=== PATIENT | female | born 1965 | race Caucasian/White ===

== ENCOUNTER → 2019-06-24 17:36 | Outpatient (CLI) | payer BC, SELFPAY ==
--- NOTE | ~2019-06-24 | MR_ITS ---
EXAMINATION: MR lumbar spine wo con DATE: 06/24/2019 19:00 INDICATION: Low back pain. TECHNIQUE: Magnetic resonance imaging (MRI) of the lumbar spine was performed without intravenous con trast. Sequences included sagittal T2-weighted FSE, sagittal T2-weighted FS FSE, sagittal T1-weighted FSE, and axial T2-weighted FSE. COMPARISON: None FINDINGS: Bone alignment is normal. Vertebral body heights and intervertebral disc heights are normal . There are hemangiomas in L1 and L5 vertebral bodies. The distal spinal cord signal intensity is nor mal. The conus medullaris is at L1-L2. The following disc levels are specifically discussed: L1-L2: The disc does not extend beyond the endplate margin. There is no facet joint osteoarthritis. T here is no neural foraminal stenosis. There is no central canal stenosis. L2-L3: The disc does not extend beyond the endplate margin. There is mild bilateral facet joint osteo arthritis. There is no neural foraminal stenosis. There is no central canal stenosis. L3-L4: The disc is bulging. There is moderate bilateral facet joint osteoarthritis. There is mild aubree ateral neural foraminal stenosis. There is mild central canal stenosis. L4-L5: The disc is bulging. There is severe bilateral facet joint osteoarthritis. There is mild bilat eral neural foraminal stenosis. There is mild central canal stenosis. L5-S1: The disc is bulging. There is mild right and severe left facet joint osteoarthritis. There is no neural foraminal stenosis. There is no central canal stenosis. IMPRESSION: 1. Mild lumbar spondylosis. Reviewed, dictated and finalized at location A. ENSATION ADMINISTRATOR IMPRESSION: 1. Mild lumbar spondylosis.
== END ==
PROVIDERS: Visit Provider Orthopaedic Surgery
DX: M47.896 Other spondylosis, lumbar region (principal)
CPT/HCPCS: 72148

== ENCOUNTER → 2019-08-27 17:08 | Outpatient (CLI) | payer BC, SELFPAY ==
--- NOTE | ~2019-08-27 | MM_ITS ---
EXAMINATION: MM screening [facility] BI w kalyan HISTORY: Screening mammogram TECHNIQUE: Craniocaudal and mediolateral oblique 3-D tomosynthesis images were obtained and synthetic 2-D images were generated. CAD analysis was submitted and interpreted. COMPARISON: 07/18/2018, 06/30/2018, 05/27/2017 BREAST PARENCHYMAL COMPOSITION: There are scattered areas of fibroglandular density. FINDINGS: RIGHT BREAST: A mass is present in the middle third of the lower breast which is best appreciated 6.5 cm from the nipple on mediolateral oblique tomosynthesis image 44/77. LEFT BREAST: There is no evidence of suspicious mass, calcification, or architectural distortion to s uggest malignancy. There has been no significant interval change. IMPRESSION: 1. Right breast mass. 2. Additional mammographic views and possible breast ultrasound are recommended. BI-RADS Category 0: Incomplete: Needs additional imaging evaluation. Reviewed, dictated and finalized at location A. ARY HISTORIAN IMPRESSION: 1. Right breast mass. 2. Additional mammographic views and possible breast ultrasound are recommended . BI-RADS Category 0: Incomplete: Needs additional imaging evaluation.
== END ==
PROVIDERS: Visit Provider Obstetrics & Gynecology
DX: Z12.31 Encounter for screening mammogram for malignant neoplasm of breast (principal); R92.8 Other abnormal and inconclusive findings on diagnostic imaging of breast
CPT/HCPCS: 77063; 77067

== ENCOUNTER → 2019-09-15 07:38 | Outpatient (CLI) | payer BC, SELFPAY ==
--- NOTE | ~2019-09-15 | MMUS_ITS ---
EXAMINATION: MM diagnostic mammo unilat RT, US breast RT limited HISTORY: Follow-up right breast asymmetries TECHNIQUE: Additional 3-D tomosynthesis images of the right breast were performed and synthetic 2-D i mages were generated. CAD analysis was submitted and interpreted. High resolution right breast ultras ound was performed. COMPARISON: Comparison to multiple prior studies sequentially, with oldest reviewed study dated 04/20. FINDINGS: MAMMOGRAPHIC FINDINGS: Breast composed of scattered areas of fibroglandular density. There is an 8 mm circumscribed mass in the lower inner quadrant of the right breast, middle third. No suspicious architectural distortion or abnormal cluster of calcifications. ULTRASOUND: At 9:00, 4 cm from the nipple, there is an irregular shaped hypoechoic mass measuring 6 x 5 x 4 mm wi th posterior shadowing. No internal vascularity. There are multiple cysts of the right breast includi ng a cluster of microcysts at 9:00, 4 cm from the nipple measuring 1.2 cm in aggregate. IMPRESSION: 1. Irregular shaped solid hypoechoic mass of the right breast at 9:00, 4 cm from the nipple. 2. Ultrasound-guided right breast biopsy recommended. BI-RADS category 4, suspicious findings. Reviewed, dictated and finalized at location A. RPRISE SALES PERSON IMPRESSION: 1. Irregular shaped solid hypoechoic mass of the right breast at 9:00, 4 cm fro m the nipple. 2. Ultrasound-guided right breast biopsy recommended. BI-RADS category 4, suspicious findings.
== END ==
PROVIDERS: Visit Provider Obstetrics & Gynecology
DX: R92.8 Other abnormal and inconclusive findings on diagnostic imaging of breast (principal)
CPT/HCPCS: 76642; 77065

== ENCOUNTER → 2020-03-04 14:54 | Outpatient (CLI) | payer BC, SELFPAY ==
--- NOTE | ~2020-03-04 | XR_ITS ---
XR_[id number]_CR DATE: 03/04/2020 15:04 INDICATION: Neck pain TECHNIQUE: AP, lateral and swimmer views COMPARISON: None FINDINGS: There is moderately severe degenerative disc disease at C5-6 and C6-7 with mild retrolisthe sis. There is uncovertebral joint spurring at C5-6 and C6-7. No fracture or dislocation or locked facet or prevertebral soft tissue swelling. IMPRESSION: Degenerative changes, including moderately severe degenerative disc disease at C5-6 and C 6-7 Reviewed, dictated and finalized at Location A. Reviewed, dictated and finalized at location A. IMPRESSION: Degenerative changes, including moderately severe degenerative disc disease at C5-6 and C6-7
== END ==
PROVIDERS: PCP Family Medicine; Visit Provider Family Medicine
DX: M54.2 Cervicalgia (principal); R20.2 Paresthesia of skin; M50.322 Other cervical disc degeneration at C5-C6 level
CPT/HCPCS: 72040

== ENCOUNTER → 2020-12-08 16:11 | Outpatient (CLI) | payer BC, SELFPAY ==
--- NOTE | ~2020-12-08 | MM_ITS ---
EXAMINATION: MM screening [facility] BI w kalyan HISTORY: Screening TECHNIQUE: Craniocaudal and mediolateral oblique 3-D tomosynthesis images were obtained and synthetic 2-D images were generated. CAD analysis was submitted and interpreted. COMPARISON: Comparison to multiple prior studies sequentially, with oldest reviewed study dated 04/21. BREAST PARENCHYMAL COMPOSITION: The breasts are heterogeneously dense, which may obscure small masses . FINDINGS: There is a mass in the lower inner quadrant of the right breast measuring approximately 1 c m. The left breast is stable without evidence for malignancy. IMPRESSION: 1. Right breast mass, lower inner quadrant measuring approximately 1 cm. 2. Additional mammographic views and possible breast ultrasound are recommended. BI-RADS Category 0: Incomplete: Needs additional imaging evaluation. Reviewed, dictated and finalized at location A. IMPRESSION: 1. Right breast mass, lower inner quadrant measuring approximately 1 cm. 2. Additional mammographic views and possible breast ultrasound are recommended . BI-RADS Category 0: Incomplete: Needs additional imaging evaluation.
== END ==
PROVIDERS: Visit Provider Obstetrics & Gynecology
DX: Z12.31 Encounter for screening mammogram for malignant neoplasm of breast (principal); R92.8 Other abnormal and inconclusive findings on diagnostic imaging of breast
CPT/HCPCS: 77063; 77067

== ENCOUNTER → 2021-01-05 07:40 | Outpatient (CLI) | payer BC, SELFPAY ==
--- NOTE | ~2021-01-05 | MMUS_ITS ---
EXAMINATION: MM diagnostic mammo unilat RT, US breast RT limited HISTORY: ] Breast mass on screening mammogram TECHNIQUE: Additional 3-D tomosynthesis images of the right breast were performed and synthetic 2-D i mages were generated. CAD analysis was submitted and interpreted. High resolution limited right breas t ultrasound was performed. COMPARISON: 12/08/2020, 09/15/2019, 08/27/2019, 06/30/2018 FINDINGS: MAMMOGRAPHIC FINDINGS: There is a 9 mm oval, obscured, equal density mass in the anterior third of the lower inner breast at the 4:00 location 3 cm from the nipple. No suspicious calcification or architectural distortion are identified. ULTRASOUND: There is a 10 mm cyst at the 4:00 location 4 cm from the nipple corresponding to the mammographic fin ding in question. An adjacent 4 mm cyst is also noted. Cysts measuring 4 mm and 3 mm are noted at the 6:00 location 4 cm from the nipple. IMPRESSION: 1. No mammographic or sonographic evidence of malignancy. 2. Recommend routine screening mammography in one year. BI-RADS Category 2: Benign finding(s). Reviewed, dictated and finalized at location A. IMPRESSION: 1. No mammographic or sonographic evidence of malignancy. 2. Recommend routine screening mammography in one year. BI-RADS Category 2: Benign finding(s).
== END ==
PROVIDERS: Visit Provider Obstetrics & Gynecology
DX: R92.8 Other abnormal and inconclusive findings on diagnostic imaging of breast (principal)
CPT/HCPCS: 76642; 77065

== ENCOUNTER 2022-05-10 10:39 | Outpatient (CLI) | payer OTHER, SELFPAY ==
--- NOTE | ~2022-05-10 | MM_ITS ---
EXAMINATION: MM screening [facility] BI w kalyan HISTORY: Screening TECHNIQUE: Craniocaudal and mediolateral oblique 3-D tomosynthesis images were obtained and synthetic 2-D images were generated. CAD analysis was submitted and interpreted. COMPARISON: Comparison to multiple prior studies sequentially, with oldest reviewed study dated 06/21. BREAST PARENCHYMAL COMPOSITION: Breast composed of scattered areas of fibroglandular density FINDINGS: There are bilateral nodular asymmetries in the periareolar location of both breasts. These areas are demonstrated on MLO views, although not confirmed on CC views. IMPRESSION: 1. Bilateral nodular asymmetries in the periareolar location of both breasts. 2. Additional mammographic views and possible breast ultrasound are recommended. BI-RADS CATEGORY 0 - INCOMPLETE STUDY, NEED ADDITIONAL IMAGING EVALUATION. Reviewed, dictated and finalized at location A. IMPRESSION: 1. Bilateral nodular asymmetries in the periareolar location of both breasts. 2. Additional mammographic views and possible breast ultrasound are recommended . BI-RADS CATEGORY 0 - INCOMPLETE STUDY, NEED ADDITIONAL IMAGING EVALUATION.
== END 2022-05-10 10:40 | disposition home or self-care (01) ==
PROVIDERS: PCP Family Medicine; Visit Provider Nurse Practitioner
DX: Z12.31 Encounter for screening mammogram for malignant neoplasm of breast (principal); R92.8 Other abnormal and inconclusive findings on diagnostic imaging of breast
CPT/HCPCS: 77063; 77067

== ENCOUNTER 2022-05-28 14:10 | Outpatient (CLI) | payer OTHER, SELFPAY ==
--- NOTE | ~2022-05-28 | MMUS_ITS ---
EXAMINATION: MM diagnostic [facility] BI w dustin, US breast BI complete HISTORY: Bilateral nodular asymmetries reported in the periareolar areas of the breasts on 05/10/2022 screening mammogram TECHNIQUE: Additional 3-D tomosynthesis images of both breasts were performed and synthetic 2-D image s were generated. CAD analysis was submitted and interpreted. High resolution complete bilateral roseline st ultrasound including all 4 quadrants and subareolar areas was performed. COMPARISON: 05/12/2021 bilateral screening mammogram 01/05/2021 diagnostic right mammogram and limited right breast ultrasound 12/08/2020 bilateral screening mammogram FINDINGS: MAMMOGRAPHIC FINDINGS: Approximately 3.2 x 5 mm asymmetric density is noted in the anterior upper mid right breast (MLO Dustin synthesis image 35/60). Small mass cannot be excluded in either breast. Bilateral biopsy markers are noted; history of prior bilateral benign breast biopsies. ULTRASOUND: No suspicious mass or shadowing of either breast is evident. Right breast: 4:00 4 cm from nipple: 4.3 x 5.9 x 6.9 mm sonolucency without posterior shadowing or suspicious centr al vascularity, consistent with small cyst 4:00 4 cm from nipple: 2.2 mm hypoechoic area without shadowing, likely a small cyst 6:00 4 cm from nipple: Septated 2.9 x 5.8 mm cyst without internal vascularity. Left breast: 4:00 4 cm from nipple: Parallel oval hypoechoic circumscribed 3.6 x 4.7 mm lesion without internal va scularity or posterior shadowing, likely benign 4:00 4 cm from nipple: 3.6 x 4.8 x 5 mm septated cyst without internal vascularity or posterior shado wing 6:00 5 cm from nipple: Parallel circumscribed 3.7 x 5.7 x 7 mm lesion without internal vascularity or posterior shadowing, most consistent with benign process IMPRESSION: 1. Benign findings 2. Routine annual mammographic screening is recommended BI-RADS Category 2: Benign finding(s). Reviewed, dictated and finalized at location A. ON BASTER IMPRESSION: 1. Benign findings 2. Routine annual mammographic screening is recommended BI-RADS Category 2: Benign finding(s).
== END 2022-05-28 14:11 ==
LOC: MICIMG 14:11
PROVIDERS: PCP Family Medicine; Visit Provider Nurse Practitioner
DX: R92.8 Other abnormal and inconclusive findings on diagnostic imaging of breast (principal)
CPT/HCPCS: 76641; 77062; 77066; G0279

== ENCOUNTER 2023-11-19 10:08 | Outpatient (CLI) | payer OTHER, SELFPAY ==
--- NOTE | ~2023-11-19 | MM_ITS ---
EXAMINATION: MM screening [facility] BI w kalyan HISTORY: Screening mammogram TECHNIQUE: Craniocaudal and mediolateral oblique 3-D tomosynthesis images were obtained and synthetic 2-D images were generated. CAD analysis was submitted and interpreted. COMPARISON: 05/28/2022 diagnostic bilateral mammogram and complete bilateral breast ultrasound examina tion 05/10/2022 bilateral screening mammogram 01/05/2021 diagnostic right mammogram and Limited right breast ultrasound 12/08/2020 bilateral screening mammogram BREAST PARENCHYMAL COMPOSITION: There are scattered areas of fibroglandular density. FINDINGS: There are bilateral breast biopsy markers; history of prior benign bilateral breast biopsie s. There is no evidence of suspicious mass, calcification, or architectural distortion to suggest mal ignancy in either breast. There has been no suspicious interval change. IMPRESSION: 1. No mammographic evidence of malignancy. 2. Recommend routine screening mammography in one year. BI-RADS Category 1: Negative Reviewed, dictated and finalized at location A.
--- NOTE | ~2023-11-19 | DEXA_ITS ---
Bone Density Report Name: GONZALO ALICIA Age: 58 Sex: Female Ethnicity: White Date of : 1965 Indication: postmenopausal; screening for osteoporosis; parental hip fracture; height loss; Referring Provider: ELIAS, SAFIA Study: Bone densitometry was performed. Exam Date: November 19, 2023 Accession number: [id number] Bone Density: Region BMD T-score Z-score Classification AP Spine (L1-L4) 0.989 -0.5 0.8 Normal Femoral Neck (Left) 0.742 -1.0 0.3 Normal Total Hip (Left) 0.865 -0.6 0.3 Normal Femoral Neck (Right) 0.716 -1.2 0.1 Osteopenia Total Hip (Right) 0.807 -1.1 -0.2 Osteopenia Total Hip Mean 0.836 -0.9 0.1 Normal World Health Organization criteria for BMD impression classify patients as: Normal (T-score at or above -1.0), Osteopenia (T-score between -1.0 and -2.5), or Osteoporosis (T-score at or below -2.5). 10-year Fracture Risk(1): Major Osteoporotic Fracture 14% Hip Fracture 0.5% Reported Risk Factors: [place] (), Neck BMD=0.716, BMI=27.9, parental fracture (1) FRAX(R) Version 3.08. Fracture probability calculated for an untreated patient. Fracture probability may be lower if the patient has received treatment. Clinical Information Provided by Patient: Parent has had a hip fracture Has used the following medications: Vitamin D, Calcium Patient maximum height was 70 Menopause Age: 47 Drinks caffeinated beverages Onset of menses at age 14 Number of children 1 Impression: The patient has low bone mass, based on the Right Femoral Neck T-score. The patient has an estimated ten-year risk of hip fracture of 0.5% and an estimated ten-year risk of major fracture of 14%, based on the WHO FRAX algorithm. The patient has risk factors, including: parental hip fracture. Discussion: BONE DENSITY IS LOW AT ONE OR MORE SKELETAL SITES. This patient's lowest T-score is low at one or more skeletal sites. It meets the World Health Organization's (WHO) criteria for ?low bone mass? (T-score between -1.0 and -2.5). The patient's 10-year risk of fracture as calculated by FRAX is less than the threshold where pharmacological therapy is recommended by the National Osteoporosis Foundation (NOF). However, all treatment decisions require clinical judgment and consideration of individual patient factors, including patient preferences, comorbidities, previous drug use, risk factors not captured in the FRAX model (e.g., frailty, falls, vitamin D deficiency, increased bone turnover, interval significant decline in bone density) and possible under or overestimation of fracture risk by FRAX. The patient should follow a healthful lifestyle (good nutrition with adequate calcium and vitamin D, and appropriate weight-bearing exercise). Follow-Up: Consider repeating this study in 2 to 3 years to reasses
== END 2023-11-19 10:09 ==
LOC: MICIMG 10:09
PROVIDERS: PCP Nurse Practitioner; Visit Provider Nurse Practitioner
DX: Z12.31 Encounter for screening mammogram for malignant neoplasm of breast (principal); Z78.0 Asymptomatic menopausal state; M85.851 Other specified disorders of bone density and structure, right thigh
CPT/HCPCS: 77063; 77067; 77080